=== PATIENT | male | born 1975 | race Caucasian/White ===

== ENCOUNTER 2016-07-04 23:48 | Emergency (ER) | payer SELFPAY ==
--- NOTE | ~2016-07-04 | ER ---
PATIENT'S NAME: CHANDA MARTINEZ [facility] AGE: 40 Y [address] ROOM: [place] [address] LOCATION: [facility] ADMIT DATE: 07/04/2016 ER/Outpatient Report DISCHARGE DATE: 07/05/2016 FAMILY PHYSICIAN: Jerilyn Rashid MD ATTENDING PHYSICIAN: Grace Ruiz CONTINUATION: PHYSICAL EXAM: VITAL SIGNS: Heart rate is 90, respiratory rate 18, temperature 98.4, saturating 96% on room air. His weight is 104.8 kilos. GENERAL: The patient is in no acute distress. He is alert and interactive. He is obese. HEART: Regular rate and rhythm. LUNGS: His lung sound are clear. ABDOMEN: Obese, but nontender. No ecchymoses. EXTREMITIES: He has no real swelling of the right knee at all. Max tenderness is medial now, but he has full range of motion of the knee. His gait is within normal limits. He has a negative anterior drawer test. The knee is not red or warm or hot to touch at all. EMERGENCY ROOM COURSE: The patient received an x-ray, which on my read does not show any fractures or dislocations. I doubt this may just be an exacerbation of his gout. He is not in a terrible amount of pain. He was given [place] and he said he felt better. I asked that he follow up with his primary care doctor and stay on top of his medications and follow up appropriately. IMPRESSION: Right knee pain. MD ENRRIQUE FRANKLIN/modl /[id number] d: 07/05/16450 t: 07/05/16 182, OUTPATIENT REPORT
--- NOTE | ~2016-07-04 | ER ---
PATIENT'S NAME: CHANDA MARTINEZ [facility] AGE: 40 Y [address] ROOM: [place] [address] LOCATION: [facility] ADMIT DATE: 07/04/2016 ER/Outpatient Report DISCHARGE DATE: 07/05/2016 FAMILY PHYSICIAN: Jerilyn Rashid MD ATTENDING PHYSICIAN: Grace Ruiz HISTORY OF PRESENT ILLNESS: This is a 40-year-old male, who presents today with chief complaint of right knee pain, mostly medial knee. The patient does have a history of gouty arthritis; congenital club feet, status post repair; born with 1 kidney, congenital; depression; anxiety; osteomyelitis of the left calcaneus; hypertension; and GERD. He presents today with right knee pain after he fell yesterday. The patient says that he forgot to take his allopurinol today because he was busy doing something else; has not taken anything for pain. Denies redness or swelling. No fever or chills. No other complaints. Mechanism of action with a fall, he said he fell going up the stairs, fell down onto his right knee. He also complains of left knee pain, but he says the right knee is worse. PAST MEDICAL HISTORY: As above. SOCIAL HISTORY: He smokes a quarter pack per day, current every day smoker. Denies any alcohol or drug use. REVIEW OF SYSTEMS: Reviewed by me and negative with the exception of those discussed in the HPI. PHYSICAL EXAMINATION: VITAL SIGNS: DICTATION ENDS HERE MD ENRRIQUE FRANKLIN/joaquínl /[id number] d: 07/05/16518 t: 07/05/16 1826, OUTPATIENT REPORT
[~2016-07-04 23:48] MED LIST: ASPIRIN325 MG PO; BENTYL10 MG PO; COLACE100 MG PO; DOXYCYCLINE100 MG PO; FLORASTOR250 MG PO; INDOCIN25 MG PO; INDOCIN50 MG PO; MINOCIN100 MG PO; OMEPRAZOLE40 MG PO; PERCOCET 5-3251 EACH PO; PROZAC20 MG PO; SOMA350 MG PO; TYLENOL EXTRA500 MG PO; ULTRAM50 MG PO; ZYLOPRIM100 MG PO
[2016-07-11] MEDS ORDERED: NICOTINE PATCH1 EAC1 TOP (17:38)
[2016-07-13] MEDS ORDERED: DESYREL100 MG PO (11:16)
== END 2016-07-05 00:41 | disposition disaster alternative care site (69) ==
LOC: GMED 23:48
DX: M25.561 Pain in right knee (principal); F17.210 Nicotine dependence, cigarettes, uncomplicated; Z88.0 Allergy status to penicillin; Z88.5 Allergy status to narcotic agent; Z79.899 Other long term (current) drug therapy

== ENCOUNTER 2016-08-11 13:22 | Emergency (ER) | payer SELFPAY ==
--- NOTE | ~2016-08-11 | ER ---
PATIENT'S NAME: CHANDA MARTINEZ [facility] AGE: 40 Y [address] ROOM: [place], [place] [address] LOCATION: [facility] ADMIT DATE: 08/11/2016 ER/Outpatient Report DISCHARGE DATE: 08/11/2016 FAMILY PHYSICIAN: Jerilyn Rashid MD ATTENDING PHYSICIAN: Avni Davila TIME SEEN: 1345 hours. HISTORY OF PRESENT ILLNESS: The patient is a 40-year-old male said approximately 2 days, he started having some swelling on the right side of his jaw. Complains of some pain along the jawline mostly towards the front. He has had no fever or chills. He has been unable to open up his mouth completely. ALLERGIES: ALLERGIC TO PENICILLIN. PAST MEDICAL HISTORY: He has a history of gout, depression, anxiety, osteomyelitis. No history of diabetes. PAST SURGICAL HISTORY: Arthroscopic both right and left knee, left ankle. SOCIAL HISTORY: Has a pack of cigarettes about every 4 days, but denies alcohol. REVIEW OF SYSTEMS: HEAD/EENT: No complaints of headache, stiff neck. Has had multiple dental extractions, not seen the dentist for quite sometime. RESPIRATORY: Negative. CARDIOVASCULAR: Negative. OBJECTIVE FINDINGS: VITAL SIGNS: Temperature is 97.2, his respiratory rate 20, pulse 85, O2 saturations 95% on room air. GENERAL APPEARANCE: Alert. No obvious distress. HEENT: Eyes: PERRL. Mouth: Has several back molars missing. There is 1 tooth on the right towards the front and second completely broken off. His gumline was slightly tender. His right side of his chin is somewhat swollen. A little indurated. ASSESSMENT: Swelling, right frontal jaw area, possible abscess tooth versus early skin PATIENT'S NAME: CHANDA MARTINEZ [facility] AGE: 40 Y [address] ROOM: [place], [place] [address] LOCATION: [facility] ADMIT DATE: 08/11/2016 ER/Outpatient Report DISCHARGE DATE: 08/11/2016 FAMILY PHYSICIAN: Jerilyn Rashid MD ATTENDING PHYSICIAN: Avni Davila abscess. PLAN: Clindamycin 300 mg one t.i.d. Frequent hot packs. Follow up with his primary care tomorrow. Recommend ibuprofen for pain 800 mg three times a day. DHEERAJ SHANKS FOR MD GERARD BATES/modl /[id number] d: 08/11/16 2329 t: 08/25/16 1209, OUTPATIENT REPORT
[~2016-08-11 13:22] MED LIST changes: +DESYREL100 MG PO; +NICOTINE PATCH1 EAC1 TOP
== END 2016-08-11 13:57 | disposition disaster alternative care site (69) ==
LOC: GMED 13:22
DX: R22.0 Localized swelling, mass and lump, head (principal); F32.9 Major depressive disorder, single episode, unspecified; F41.9 Anxiety disorder, unspecified; M86.9 Osteomyelitis, unspecified; F17.210 Nicotine dependence, cigarettes, uncomplicated; Z88.0 Allergy status to penicillin

== ENCOUNTER 2016-08-13 08:21 | Emergency (ER) | payer SELFPAY ==
--- NOTE | ~2016-08-13 | ER ---
PATIENT'S NAME: CHANDA MARTINEZ [facility] AGE: 40 Y [address] ROOM: [place] [address] LOCATION: ED ADMIT DATE: 08/13/2016 ER/Outpatient Report DISCHARGE DATE: 08/13/2016 FAMILY PHYSICIAN: Jerilyn Rashid MD ATTENDING PHYSICIAN: Avni Davila Admission date and time documented on the medical record. I saw the patient at 0840 hours. CHIEF COMPLAINT: Right jaw swelling and pain. HISTORY OF PRESENT ILLNESS: This patient is a 40-year-old male who has had a 5-day history of increasing swelling of his right lower jaw and pain. He was seen 2 days ago here in the emergency department and started on clindamycin 300 mg 3 times a day. He has taken it for 2 days and is starting his third day today. He has more swelling, hard to open his jaw, does have some difficulty talking. No problem swallowing as yet. Does have a history of meth abuse with problems with his teeth from the meth abuse. A little bit dizzy at times. He has a cough. His throat is a little bit sore. Denies any fever. Having some chills at times. No fall or trauma. No headache or eyes, ears, nose, neck, or spine pain. No chest pain or shortness of breath. No abdominal pain, nausea, vomiting, or diarrhea. No joint or muscle swelling, redness, or pain. No skin eruptions or rash. Does have a history of anxiety and depression. No endocrine problems or neurologic changes. HOME MEDICATIONS: See attached medication list. ALLERGIES: MORPHINE AND PENICILLIN. SOCIAL HISTORY: The patient smokes about 4 cigarettes a day. Nondrinker. Remote history of methamphetamine street drugs. He has been clean for a year. SIGNIFICANT PAST MEDICAL HISTORY: Anxiety, depression, osteomyelitis, and gout. OPERATIONS: Bilateral knee arthroscopy, left ankle arthroscopy, and cystoscopy. REVIEW OF SYSTEMS: All systems reviewed by me are negative with the exception of those discussed PATIENT'S NAME: CHANDA MARTINEZ [facility] AGE: 40 Y [address] ROOM: [place] [address] LOCATION: ED ADMIT DATE: 08/13/2016 ER/Outpatient Report DISCHARGE DATE: 08/13/2016 FAMILY PHYSICIAN: Jerilyn Rashid MD ATTENDING PHYSICIAN: Avni Davila in the History of Present Illness. PHYSICAL EXAMINATION: VITAL SIGNS: Temperature 97.8 tympanic, pulse 92, respirations 20, blood pressure 154/89, and O2 saturation on room air is 96%. HEENT: Head: Normocephalic. Eyes: Clear. Ears: Clear TMs bilaterally. Nose: Clear. Throat: Clear. Mucous membranes moist. Rotten teeth. He has a swollen right jaw that is indurated, tender. Hard to open his jaw. NECK: No nuchal rigidity. No thyromegaly or cervical adenopathy. LUNGS: Clear. HEART: Regular. NEUROVASCULAR: Intact. IMPRESSION: Swollen right jaw, suspected abscess from poor dentition. PLAN: I did discuss the patient with Dr. Kapil Baker, oral surgeon. Dr. Baker is coming into the emergency room to evaluate the patient. We will proceed on his recommendations. MD ABHISHEK BATES/modl /[id number] d: 08/13/16 1432 t: 08/14/16 0611, OUTPATIENT REPORT
--- NOTE | ~2016-08-13 | ER ---
PATIENT'S NAME: CHANDA MARTINEZ [facility] AGE: 40 Y [address] ROOM: [place] [address] LOCATION: ED ADMIT DATE: 08/13/2016 ER/Outpatient Report DISCHARGE DATE: 08/13/2016 FAMILY PHYSICIAN: Jerilyn Rashid MD ATTENDING PHYSICIAN: Avni Davila OUTPATIENT EMERGENCY ROOM VISIT AND PROCEDURE INDICATIONS FOR PROCEDURE: This patient was seen in the emergency room with a right mandibular parasymphyseal abscess secondary to abscessed tooth. I was called in to evaluate and treat. PROCEDURE: On exam, he had fullness and fluctuance of the vestibule of the right mandible. He had numerous nonrestorable abscessed teeth that need attention. We gave him a little bit of local anesthetic and incised and drained a significant amount of suppurative drainage from this area. PLAN: He was placed on Cleocin and Peridex and given my cell phone number to call p.r.n. and set up an appointment to be seen in a few days for more definitive treatment. JOAN REYNOLDS MD/CELESTINO ARTEAGA/dejah /[id number] d: t: 08/19/16 1400, OUTPATIENT REPORT
== END 2016-08-13 09:27 | disposition disaster alternative care site (69) ==
LOC: GMED 08:21
PROC: 0W953ZZ Drainage of Lower Jaw, Percutaneous Approach (ICD-10-PCS; principal; 2016-08-13)
DX: M27.2 Inflammatory conditions of jaws (principal); F17.210 Nicotine dependence, cigarettes, uncomplicated; F32.9 Major depressive disorder, single episode, unspecified; F41.9 Anxiety disorder, unspecified; M86.9 Osteomyelitis, unspecified; M10.9 Gout, unspecified; F19.90 Other psychoactive substance use, unspecified, uncomplicated; Z88.0 Allergy status to penicillin; Z88.5 Allergy status to narcotic agent; Z79.899 Other long term (current) drug therapy; Z79.2 Long term (current) use of antibiotics

== ENCOUNTER 2016-11-26 17:22 | Emergency (ER) | payer SELFPAY ==
--- NOTE | ~2016-11-26 | ER ---
PATIENT'S NAME: CHANDA MARTINEZ [facility] AGE: 41 Y [address] ROOM: [place] [address] LOCATION: [facility] ADMIT DATE: 11/26/2016 ER/Outpatient Report DISCHARGE DATE: 11/26/2016 FAMILY PHYSICIAN: Jerilyn Rashid MD ATTENDING PHYSICIAN: Christophe Davalos Time of Arrival: 1728 hours. Time of Exam: 1735 hours. CHIEF COMPLAINT: Left ear pain. HISTORY OF PRESENT ILLNESS: The patient states he has had left ear pain for the past 2 days. He has also had some nasal congestion, cough, chills off and on. Denies any injury to his ear. Has not had any trauma. ALLERGIES: MORPHINE AND PENICILLIN. CURRENT MEDICATIONS: On the chart and reviewed by me. PAST MEDICAL HISTORY: Gout and insomnia. PAST SURGERIES: Bilateral knee surgeries, clubfoot repair, osteomyelitis of the knee, right shoulder scope, urethra surgery. SOCIAL HISTORY: States he smokes half a pack per day and has for the last 23 years. Drinks alcohol on the weekends only, drank last weekend approximately 4 shots. Does use marijuana on an occasional basis. REVIEW OF SYSTEMS: Negative other than those mentioned in the HPI. PHYSICAL EXAMINATION: VITAL SIGNS: He weighed 101.3 kg. Blood pressure 147/87, pulse of 80, respirations 16, temperature of 96.2 tympanic, and O2 saturation was 98% on room air. GENERAL: He is awake, alert, and oriented x4. SKIN: [place], warm, and dry. RESPIRATIONS: Even and nonlabored. PATIENT'S NAME: CHANDA MARTINEZ [facility] AGE: 41 Y [address] ROOM: [place] [address] LOCATION: [facility] ADMIT DATE: 11/26/2016 ER/Outpatient Report DISCHARGE DATE: 11/26/2016 FAMILY PHYSICIAN: Jerilyn Rashid MD ATTENDING PHYSICIAN: Christophe Davalos HEENT: Right TM is injected. Left ear canal is reddened and swollen. Difficult to visualize the TM due to the swelling. Nasal is boggy. Oropharynx is red posteriorly. NECK: Supple. No lymphadenopathy. LUNGS: Lung sounds are clear throughout. HEART: Regular rate and rhythm. IMPRESSION: Left otitis externa. PLAN: Home, rest, fluids. Prescriptions were written for amoxicillin and Cortisporin ear drops, and use Tylenol or ibuprofen as needed for discomfort. If symptoms persist or worsen, he needs to follow up with his primary provider in the next 2 or 3 days. He verbalized understanding. DELMI BETTENCOURT APRN FOR MD ANNA NELSON/dejah /[id number] d: 11/26/16 2142 t: 12/06/16 0633, OUTPATIENT REPORT
== END 2016-11-26 17:45 | disposition disaster alternative care site (69) ==
LOC: GMED 17:22
DX: H60.92 Unspecified otitis externa, left ear (principal); G47.00 Insomnia, unspecified; F17.210 Nicotine dependence, cigarettes, uncomplicated; Z88.0 Allergy status to penicillin; Z88.5 Allergy status to narcotic agent; Z98.890 Other specified postprocedural states; Z79.899 Other long term (current) drug therapy